=== PATIENT | male | born 1950 | race African-American/Black ===

== ENCOUNTER 2018-02-17 17:54 | Inpatient (IN) | payer BC, MEDICARE ==
[~2018-02-17] VITALS: Ht 172.7 cm; Wt 110.4 kg
[2018-02-17 19:01] LABS: Basophils # (auto) 0 uL; Basophils % (auto) 0.2 % (0.0-2.0); Eosinophils # (auto) 0.1 uL; Hematocrit 42.6 % (41.0-53.0); Lymphocytes # (auto) 1.8 uL; Lymphocytes % (auto) 16.6 % (10.0-50.0); Mean Corpuscular Hemoglobin 31.2 pg (28.0-32.0); Mean Corpuscular Hgb Conc. 35.2 g/dL (32.0-36.0); Mean Corpuscular Volume 88.7 fL (80.0-100.0); Monocytes # (auto) 1.1 uL; Monocytes % (auto) 10.6 % (0.0-12.0); Neutrophils # (auto) 7.6 uL; Neutrophils % (auto) 71.6 % (37.0-80.0); Nucleated Red Blood Cells % 0.2 %; Platelet Count (auto) 206 10^3/uL (140-450); Red Cell Distribution Width 14.3 % (11.8-14.3); White Blood Cell 10.6 10^3/uL (4.4-10.8)
[2018-02-17 19:26] LABS: Albumin 2.6 g/dL (3.4-5.0); BUN/Creatinine Ratio 8.1; Bilirubin, Total 0.5 mg/dL (0.2-1.0); Calcium 7.8 mg/dL (8.5-10.1); Total Protein 7.2 g/dL (6.4-8.2)
[2018-02-17] MEDS ORDERED: NALBUPHINE HCL 10 MG/1ml INJECTION IV ONE (21:15)
[2018-02-17] MEDS ORDERED: ONDANSETRON HCL 4 MG/2 ML VIAL IV ONE (21:15)
[2018-02-17 22:11] LABS: Magnesium 4.6 mg/dL (1.6-2.6)
[2018-02-17 22:28] LABS: INR 1.03 (0.9-1.15)
[2018-02-17] MEDS ORDERED: LIDOCAINE 2% JELLY 11ml (GLYDO) ONE (22:53)
[2018-02-17] MEDS ORDERED: LIDOCAINE 2% JELLY 11ml (GLYDO) UR ONE (23:00)
[2018-02-17 23:48] LABS: Urine Amorphous Crystal FEW /hpf (None Seen); Urine Bacteria NONE SEEN /hpf (None Seen); Urine Blood 2+ /uL (Negative); Urine Specific Gravity 1.008 (1.001-1.035); Urine WBC 4 /hpf (0 - 3)
[2018-02-18] MEDS ORDERED: cefTRIAXone 1GM/10ml IVPUSH 10 ML IV ONE (00:45)
[2018-02-18] MEDS ORDERED: AMLO10TA2 PO (02:02)
[2018-02-18] MEDS ORDERED: HCTZ25T PO (02:02)
[2018-02-18] MEDS ORDERED: CARV12.544 PO (02:02)
[2018-02-18] MEDS ORDERED: PRAV20TA3 PO (02:02)
[2018-02-18] MEDS ORDERED: ENAL20TA70 PO (02:02)
[2018-02-18] MEDS ORDERED: HYDR-4296 PO (02:02)
[2018-02-18] MEDS ORDERED: ASPI81CH43 PO (02:03)
[2018-02-18] MEDS ORDERED: HYDROcodone-ACET 5/325MG TAB PO PRN (02:30)
[2018-02-18] MEDS ORDERED: ONDANSETRON HCL 4 MG/2 ML VIAL IV PRN (02:30)
[2018-02-18] MEDS ORDERED: NITROGLYCERIN 0.4 MG SL TAB SL PRN (02:30)
[2018-02-18] MEDS ORDERED: SODIUM CHLORIDE 0.9% 1,000 ML IV ONE (02:30)
[2018-02-18] MEDS ORDERED: TEMAZEPAM 15 MG CAP PO PRN (02:30)
[2018-02-18] MEDS ORDERED: ACETAMINOPHEN 325 MG TAB PO PRN (02:30)
[2018-02-18] MEDS ORDERED: MORPHINE SULF INJ 2 MG/ML SYRINGE 1ML IV PRN (02:30)
[2018-02-18 03:59] VITALS: BP 128/72
[2018-02-18 05:00] VITALS: BP 128/72
[2018-02-18 07:34] LABS: Albumin 2.6 g/dL (3.4-5.0); BUN/Creatinine Ratio 11.1; Bilirubin, Total 0.4 mg/dL (0.2-1.0); Calcium 8.3 mg/dL (8.5-10.1); Potassium 3.5 mmol/L (3.5-5.1); Total Protein 7.4 g/dL (6.4-8.2)
[2018-02-18] MEDS: SODIUM CHLORIDE 0.9% 1,000 ML IV SCH ×2 (07:38→14:42)
[2018-02-18] MEDS: hydrALAZINE HCL 25 MG TAB PO SCH ×2 (07:39→13:36)
[2018-02-18 08:13] LABS: Basophils # (auto) 0 uL; Basophils % (auto) 0.3 % (0.0-2.0); Eosinophils # (auto) 0 uL; Eosinophils % (auto) 0.5 % (0.0-7.0); Hematocrit 43.1 % (41.0-53.0); Hemoglobin 14.7 g/dL (13.5-17.5); Lymphocytes # (auto) 1.7 uL; Lymphocytes % (auto) 17.7 % (10.0-50.0); Mean Corpuscular Hemoglobin 30.4 pg (28.0-32.0); Mean Corpuscular Hgb Conc. 34.1 g/dL (32.0-36.0); Mean Corpuscular Volume 89.2 fL (80.0-100.0); Monocytes % (auto) 10.2 % (0.0-12.0); Neutrophils # (auto) 6.7 uL; Neutrophils % (auto) 71.3 % (37.0-80.0); Nucleated Red Blood Cells % 0.1 %; Platelet Count (auto) 223 10^3/uL (140-450); Red Blood Cells 4.83 10^6/uL (4.5-5.90); Red Cell Distribution Width 14.3 % (11.8-14.3); White Blood Cell 9.4 10^3/uL (4.4-10.8)
[2018-02-18 09:00] VITALS: BP 124/74
[2018-02-18] MEDS ORDERED: amLODIPine BESYLATE 5 MG TAB PO SCH (10:00)
[2018-02-18] MEDS ORDERED: PANTOPRAZOLE 40 MG TAB PO SCH (10:00)
[2018-02-18] MEDS ORDERED: CARVEDILOL 12.5 MG TAB PO SCH (10:00)
[2018-02-18 13:00] VITALS: BP 126/70
[2018-02-18] MEDS: MORPHINE SULFATE 4 MG/ML SYR/VIAL IV PRN ×2 (14:48→17:09)
[2018-02-18] MEDS ORDERED: SODIUM BICARBONATE 50ML VIAL 50 ML in D5W/SOD CHL 0.45% 1,000 ML IV SCH (16:45)
[2018-02-18 17:00] VITALS: BP 123/66
[2018-02-18 18:10] VITALS: BP 123/66
[2018-02-18] MEDS ORDERED: cefTRIAXone 1GM/10ml IVPUSH 10 ML IV SCH (22:00)
[2018-02-18] MEDS ORDERED: PRAVASTATIN SODIUM 20 MG TAB PO SCH (22:00)
== END 2018-02-18 20:00 | disposition short-term general hospital (02) | DRG 682 ==
LOC: EDBD 17:54 → ER 18:00 → TELE 18:01 → TELE-EAST 02-18 03:35
PROVIDERS: ADMIT Nurse Practitioner; ATTEND Family Medicine
PROC: 0T9B70Z Drainage of Bladder with Drainage Device, Via Natural or Artificial Opening (ICD-10-PCS; principal; 2018-02-17)
DX: N17.9 Acute kidney failure, unspecified (principal); E43 Unspecified severe protein-calorie malnutrition; E87.1 Hypo-osmolality and hyponatremia; E87.2 Acidosis; J98.11 Atelectasis; E78.5 Hyperlipidemia, unspecified; R33.8 Other retention of urine; E83.41 Hypermagnesemia; E83.51 Hypocalcemia; R31.0 Gross hematuria; I11.9 Hypertensive heart disease without heart failure; N13.30 Unspecified hydronephrosis; N40.1 Benign prostatic hyperplasia with lower urinary tract symptoms; Z86.73 Personal history of transient ischemic attack (TIA), and cerebral infarction without residual deficits; Z79.82 Long term (current) use of aspirin
CPT/HCPCS: 36415; 51702; 71045; 74176; 80053; 81001; 83735; 83880; 84484; 85025; 85379; 85610; 85730; 87040; 87077; 87086; 87186; 96361; 96374; 96375; 99291; J0696; J2405